=== PATIENT | male | born 1985 | race Caucasian/White ===

== ENCOUNTER 2024-03-11 08:42 | Outpatient (CLI) | payer OTHER ==
[2024-03-11 09:29] LABS: FREE T4 (FREE THYROXINE) 1.37 NG/DL (0.73-1.40); THYROID STIMULATING HORMONE 2.25 ulU/ml (0.34-4.50)
== END 2024-03-11 23:59 | disposition home or self-care (01) ==
LOC: LAB 08:42
PROVIDERS: ATTEND Chiropractor
DX: E03.9 Hypothyroidism, unspecified (principal)
CPT/HCPCS: 36415; 84439; 84443; 84481